=== PATIENT | female | born 1980 | race Caucasian/White ===

== ENCOUNTER 2023-01-14 13:56 | Observation (INO) ==
[2023-01-14] MEDS ORDERED: KETOROLAC TROMETHAMINE 15 MG/ML VIAL IV ONE (14:12)
[2023-01-14] MEDS ORDERED: ONDANSETRON INJ 2 MG/ML 2 ML VIAL IV STA (14:12)
[2023-01-14] MEDS ORDERED: SODIUM CHLORIDE 0.9% 1000ML 1,000 ML IV ONE (14:12)
--- NOTE | 2023-01-14 14:21 | Emergency Department Note ---
History of Present Illness General Chief complaint: Abdominal Pain Stated complaint: ABDOMINAL PAIN,VOMITING Time Seen by Provider: 01/14/23 14:02 Source: patient and RN notes reviewed Mode of arrival: ambulatory Limitations: no limitations History of Present Illness Maximum Pain Intensity: 8 This patient is a 42-year-old female who comes in with abdominal pain. She said yesterday she felt like she had indigestion and then started having vomiting and diarrhea and now has right-sided abdominal pain in the right mid to lower abdomen. She has no abdominal surgery. She does not think she is she is a tubal ligation and her last menstrual period was about a month ago. No vaginal ear discharge. no dysuria or hematuria. no trauma or injury or overuse. No sick contacts no exposure to COVID.no unusual food or recent trave.l no shortness of breath or chest pain. Home Medications Medication Instructions Recorded Confirmed Type lactobacillus combination no.4 3 3,000 mmu cells PO DAILY 07/29/20 03/11/22 History billion cell capsule (Probiotic) aluminum chloride 20 % topical 1 applic topical ONCE PRN 02/14/21 03/11/22 Rx solution (Drysol) excessive sweating #60 mL lorazepam 0.5 mg tablet (Ativan) 0.5 mg PO DAILY PRN anxiety #10 02/14/21 03/11/22 Rx tabs albuterol sulfate 90 mcg/actuation 1 inh inhalation QID PRN shortness 03/11/22 03/11/22 Rx aerosol inhaler of breath or wheezing #8.5 grams bupropion HCl 200 mg tablet,12 hr 200 mg PO BID #180 ea 06/16/22 Rx sustained-release escitalopram oxalate 10 mg tablet 10 mg PO DAILY #90 tabs 06/16/22 Rx Allergies Allergy/AdvReac Type Severity Reaction Status Date / Time venlafaxine [From Effexor] Allergy Unknown Verified 03/11/22 08:28 Past Med/Surg History Medical History Cat bite Cat bite Cat bite Lipid screening Need for prophylactic vaccination against rabies Screening for diabetes mellitus Screening for thyroid disorder Screening, anemia, deficiency, iron Surgical History H/O tubal ligation Family History Other Adopted Family history unknown Social History Smoking Status: Former smoker Hx Alcohol Use: No Hx Substance Use: No Preferred Language: Bulgarian Visual Impairment: No Limitations Hearing Ability: Normal marital status: Single current occupational status: employed Feels Safe at Home: Yes Dental Care, Regularly: No Physical Activity Frequency: 3-4 Times per Week Seatbelt Use: always Review of Systems A total of 10 systems reviewed and were otherwise negative Physical Exam Vital Signs Vital Signs - 24 hr 01/14/23 13:58 01/14/23 14:26 01/14/23 14:26 Temperature 36.6 C Temperature Source Temporal Artery Scan Pulse Rate 96 H Pulse Rate [Apical] 80 Pulse Rhythm [Apical] Pulse Strength [Apical] Respiratory Rate 18 18 Respiratory Effort / Characteristics Non-Labored Spontaneous Respiratory Depth Normal Normal Respiratory Pattern Blood Pressure 101/70 Blood Pressure [Left Arm] Blood Pressure [Right Arm] 117/71 Blood Pressure Mean 80 Blood Pressure Mean [Left Arm] Blood Pressure Mean [Right Arm] 86 Blood Pressure Position Sitting Blood Pressure Position [Left Arm] Blood Pressure Position [Right Arm] Pulse Oximetry 99 98 98 Oxygen Delivery Method Room Air Room Air Room Air Sepsis Recent Fever Within 48 Hours No Sepsis New/Unexplained Change in Mental Status No Sepsis Action Taken by Nursing No Action Required 01/14/23 14:29 01/14/23 15:41 01/14/23 16:44 Temperature 37.4 C Temperature Source Oral Pulse Rate 80 Pulse Rate [Apical] 81 76 Pulse Rhythm [Apical] Regular Pulse Strength [Apical] Respiratory Rate 18 18 Respiratory Effort / Characteristics Non-Labored Spontaneous Non-Labored Spontaneous Respiratory Depth Normal Normal Respiratory Pattern Blood Pressure Blood Pressure [Left Arm] Blood Pressure [Right Arm] 110/62 106/64 Blood Pressure Mean Blood Pressure Mean [Left Arm] Blood Pressure Mean [Right Arm] 78 78 Blood Pressure Position Blood Pressure Position [Left Arm] Blood Pressure Position [Right Arm] Lying Pulse Oximetry 100 99 Oxygen Delivery Method Room Air Room Air Sepsis Recent Fever Within 48 Hours Sepsis New/Unexplained Change in Mental Status Sepsis Action Taken by Nursing 01/14/23 18:00 Temperature 36.6 C Temperature Source Temporal Artery Scan Pulse Rate Pulse Rate [Apical] 81 Pulse Rhythm [Apical] Regular Pulse Strength [Apical] Normal Respiratory Rate 20 Respiratory Effort / Characteristics Non-Labored Spontaneous Respiratory Depth Normal Respiratory Pattern Regular Blood Pressure Blood Pressure [Left Arm] 102/60 Blood Pressure [Right Arm] Blood Pressure Mean Blood Pressure Mean [Left Arm] 74 Blood Pressure Mean [Right Arm] Blood Pressure Position Blood Pressure Position [Left Arm] Semi-fowlers Blood Pressure Position [Right Arm] Pulse Oximetry 99 Oxygen Delivery Method Room Air Sepsis Recent Fever Within 48 Hours Sepsis New/Unexplained Change in Mental Status Sepsis Action Taken by Nursing General: Well developed well nourished middle-age female who appears in no acute distress, breathing comfortably on room air. Normal speech HEENT: Normal cephalic atraumatic. Pupils are equal round and reactive to light. Extraocular movements are intact. Oropharynx is pink with moist mucous membranes. No swelling of the mouth lips or tongue. Neck: Supple with a midline trachea. No meningeal signs or stiffness, no JVD or bruits. No Stridor. Chest: Clear to auscultation bilaterally. No wheezes or rhonchi. No increased work of breathing. Heart: Regular rate and rhythm without murmurs or gallops. Abdomen: Significantly tender in the right mid abdomen, she does have some localized guarding. Extremities: No cyanosis clubbing or edema. No calf tenderness or assymetry Spine/Back. Non tender to palpation. No CVA tenderness Skin: Good turgor without rashes. Neurologic exam: Cranial nerves two through 12 are intact. Motor and sensation are intact and symmetrical throughout. Course Administered Medications Discontinued Medications Bupivacaine HCl/Epinephrine Bitart (Bupivacaine/Epinephrine 0.5% Mpf 1:200,000 30 Ml Vial) Confirm Administered Dose 30 ml .ROUTE .STK-MED ONE Stop: 01/14/23 16:30 Last Admin: 01/14/23 17:45 Dose: 30 ml Documented By: MIKE Sodium Chloride (Nss 1000ml) 1,000 mls @ 999 mls/hr IV .Q1H1M ONE Stop: 01/14/23 15:12 Last Infusion: 01/14/23 15:25 Dose: 0 mls/hr Documented By: Admin: 01/14/23 14:24 Dose: 999 mls/hr Documented By: KASSIE Piperacillin Sod/Tazobactam Sod (Zosyn) 4.5 gm in 120 mls @ 240 mls/hr IV NOW ONE Stop: 01/14/23 16:11 Last Infusion: 01/14/23 16:19 Dose: 0 mls/hr Documented By: Admin: 01/14/23 15:47 Dose: 240 mls/hr Documented By: KASSIE Ioversol (Optiray 350 100ml) 81 ml IV ONCE ONE Stop: 01/14/23 15:13 Last Admin: 01/14/23 15:15 Dose: 81 ml Documented By: RENE Ketorolac Tromethamine (Ketorolac Tromethamine 15 Mg/Ml Vial) 10 mg IV NOW ONE Stop: 01/14/23 14:13 Last Admin: 01/14/23 14:24 Dose: 10 mg Documented By: KASSIE Ondansetron HCl (Ondansetron Inj 2 Mg/Ml 2 Ml Vial) 4 mg IV NOW STA Stop: 01/14/23 14:13 Last Admin: 01/14/23 14:24 Dose: 4 mg Documented By: KASSIE Medical Decision Making Differential Diagnosis Appendicitis, , ectopic , gallbladder disease, pancreatitis, GI illness, viral illness, electrolyte or metabolic abnormality Medical Records Attestation: I reviewed the patient's medical records. Home Medications Current Medication List: was personally reviewed by me Laboratory Data Attestation: I reviewed the patient's lab results. 01/14/23 14:16 01/14/23 14:16 Lab Results 01/14/23 01/14/23 01/14/23 Range/Units 14:16 14:16 14:16 WBC 29.70 H (4.8-10.8) K/ul RBC 4.41 (4.20-5.40) M/uL Hgb 13.8 (12.0-16.0) g/dl Hct 39.5 (37.0-47.0) % MCV 89.6 (80.0-100.0) fL MCH 31.3 (25.0-34.0) pg MCHC 34.9 (32.0-36.0) g/dL RDW Std Deviation 42.2 (36.4-46.3) fL RDW Coeff of Howie 12.7 (11.5-14.5) % Plt Count 323 (130-400) K/uL MPV 8.9 L (9.4-12.4) fL Immature Gran % (Auto) 1.4 % Neut % (Auto) 87.7 % Lymph % (Auto) 5.7 % [place] % (Auto) 5.0 % Eos % (Auto) 0.0 % Baso % (Auto) 0.2 % Neut # (Auto) 26.04 H (1.40-6.50) K/uL Lymph # (Auto) 1.68 (1.2-3.4) K/uL [place] # (Auto) 1.49 H (0.11-0.59) K/uL Eos # (Auto) 0.00 (0-0.50) K/uL Baso # (Auto) 0.06 (0-0.2) K/uL Immature Gran # (Auto) 0.43 H (0.01-0.20) K/uL RBC Morphology Unremarkable Sodium 134 L (136-145) mmol/L Potassium 3.5 (3.5-5.1) mmol/L Chloride 99 (98-107) mmol/L Carbon Dioxide 26 (21-32) mmol/L Anion Gap 9 (3-11) BUN 14 (6-23) mg/dl Creatinine 0.72 (0.6-1.2) mg/dl Est Cr Clr Drug Dosing 96.1 ml/min Est GFR ( Amer) 118.9 ml/min Est GFR (Non-Af Amer) 102.6 ml/min BUN/Creatinine Ratio 19.4 (10-20) Glucose 123 H (70-99(Fasting)) mg/dl Calcium 9.4 (8.6-10.3) mg/dl Total Bilirubin 1.3 H (0.2-1.0) mg/dl AST 17 (13-39) U/L ALT 14 (7-52) U/L Alkaline Phosphatase 65 (34-104) U/L Total Protein 7.3 (6.0-8.3) gm/dl Albumin 4.4 (3.4-5.0) gm/dl Globulin 2.9 (2.5-4.0) gm/dl Albumin/Globulin Ratio 1.5 (0.9-2) Lipase 6 L (11-82) U/L HCG, Qual Negative (Negative) SARS-CoV-2, RNA, NAAT (NEGATIVE) 01/14/23 Range/Units 14:16 WBC (4.8-10.8) K/ul RBC (4.20-5.40) M/uL Hgb (12.0-16.0) g/dl Hct (37.0-47.0) % MCV (80.0-100.0) fL MCH (25.0-34.0) pg MCHC (32.0-36.0) g/dL RDW Std Deviation (36.4-46.3) fL RDW Coeff of Howie (11.5-14.5) % Plt Count (130-400) K/uL MPV (9.4-12.4) fL Immature Gran % (Auto) % Neut % (Auto) % Lymph % (Auto) % [place] % (Auto) % Eos % (Auto) % Baso % (Auto) % Neut # (Auto) (1.40-6.50) K/uL Lymph # (Auto) (1.2-3.4) K/uL [place] # (Auto) (0.11-0.59) K/uL Eos # (Auto) (0-0.50) K/uL Baso # (Auto) (0-0.2) K/uL Immature Gran # (Auto) (0.01-0.20) K/uL RBC Morphology Sodium (136-145) mmol/L Potassium (3.5-5.1) mmol/L Chloride (98-107) mmol/L Carbon Dioxide (21-32) mmol/L Anion Gap (3-11) BUN (6-23) mg/dl Creatinine (0.6-1.2) mg/dl Est Cr Clr Drug Dosing ml/min Est GFR ( Amer) ml/min Est GFR (Non-Af Amer) ml/min BUN/Creatinine Ratio (10-20) Glucose (70-99(Fasting)) mg/dl Calcium (8.6-10.3) mg/dl Total Bilirubin (0.2-1.0) mg/dl AST (13-39) U/L ALT (7-52) U/L Alkaline Phosphatase (34-104) U/L Total Protein (6.0-8.3) gm/dl Albumin (3.4-5.0) gm/dl Globulin (2.5-4.0) gm/dl Albumin/Globulin Ratio (0.9-2) Lipase (11-82) U/L HCG, Qual (Negative) SARS-CoV-2, RNA, NAAT NEGATIVE (NEGATIVE) Imaging Data Attestation: I personally reviewed and interpreted this imaging study as follows: My Impression: CT of the abdomen pelvis. Upon my evaluation/interpretation there is in flammation with a large appendix seen in the right lower quadrant. There is also appendicolith Radiologist's Impression: Abdomen/Pelvis CT 01/14/23 14:16 CT abd pelvis IV con only CLINICAL HISTORY: rt sided abd pain, eval for appy TECHNIQUE: Helical axial images of the abdomen and pelvis were obtained and displayed. Automated dose lowering techniques and/or adjustment according to patient size were utilized for this exam. This exam was performed with intravenous contrast. CT DOSE: 355.71 mGy.cm COMPARISON: Comparison is made to ultrasound abdomen 04/08/2009 FINDINGS: Lower chest: No acute abnormality. Liver: Unremarkable. No focal lesions are seen. Gallbladder and biliary tree: No calcified gallstones. Normal caliber wall. No intra- or extrahepatic biliary ductal dilation. Pancreas: Unremarkable, no focal lesions. Spleen: Unremarkable. Adrenals: Unremarkable. Kidneys and ureters: Unremarkable. Bladder: Unremarkable. Reproductive organs: Unremarkable. Bowel: An appendicolith is seen in the appendix is noted to be markedly dilated up to 14 mm. There is surrounding free fluid and fat stranding however no discrete fluid collection is seen. Lymph nodes Retroperitoneal: Unremarkable. Pelvic: Unremarkable. Mesenteric: Unremarkable. Peritoneum: Fat stranding is seen in the right lower quadrant. No pneumoperitoneum is seen. Vessels: Unremarkable. Abdominal wall: Unremarkable. Bones: Degenerative changes in the visualized spine. IMPRESSION: Acute appendicitis without perforation or abscess formation. ACT 112: Negative or not required by law. Electronically signed by: Ed Aguirre M.D. 01/14/2023 3:31 PM [facility] Narrative This patient comes in as described above. She was placed in room B9. She is here for abdominal pain. She is fairly tender in the right side of the abdomen. IV acess was established. I ordered a test as well as multiple blood test and she was kept n.p.o. she was hydrated with normal saline given Toradol 10 mg IV and Zofran 4 mg IV she was reassessed frequently. I did also order a CT pending her test and renal function. She is not . COVID testing was also negative. White count was significantly elevated 29,000. I did get the CAT scan and looked at it myself as well and she does have acute appendicitis. No definite abscess or perforation. Her abdomen is very tender. I did consult surgery. I gave her Zosyn 4.5 g IV for antibiotic coverage they promptly saw her in the ER and going to take her to the operating room for an appendectomy. Impression & Plan Acute appendicitis with localized peritonitis, Abdominal pain, Not currently , Lab test negative for COVID-19 virus Discharge Plan Visit Data Chief Complaint: Abdominal Pain Stated Complaint: ABDOMINAL PAIN,VOMITING ED Provider: Souleymane Nicholson Discharge Problem: Acute appendicitis with localized peritonitis, Abdominal pain, Not currently , Lab test negative for COVID-19 virus Discharge Instructions Interventions: ED Discharge Assessment Last Done: 01/14/23 16:23
[2023-01-14 14:35] LABS: Hematocrit (blood only) 39.5 % (37.0-47.0); Hemoglobin 13.8 g/dl (12.0-16.0); Mean Corpuscular Hemoglobin 31.3 pg (25.0-34.0); Mean Corpuscular Hgb Conc 34.9 g/dL (32.0-36.0); Mean Corpuscular Volume 89.6 fL (80.0-100.0); Mean Platelet Volume 8.9 fL (9.4-12.4); Platelet Count 323 K/uL (130-400); RDW Coefficient of Variation 12.7 % (11.5-14.5); RDW Standard Deviation 42.2 fL (36.4-46.3); Red Blood Count 4.41 M/uL (4.20-5.40)
[2023-01-14 14:55] LABS: Albumin Globulin Ratio 1.5 (0.9-2); Albumin Level 4.4 gm/dl (3.4-5.0); BUN Creatinine Ratio 19.4 (10-20); Bilirubin,Total 1.3 mg/dl (0.2-1.0); Calcium 9.4 mg/dl (8.6-10.3); Creatinine Clr Calc Pharmacy 96.1 ml/min; Est GFR (African American) 118.9 ml/min; Est GFR (Non-African American) 102.6 ml/min; Globulin 2.9 gm/dl (2.5-4.0); Potassium 3.5 mmol/L (3.5-5.1); Total Protein 7.3 gm/dl (6.0-8.3)
[2023-01-14] MEDS ORDERED: OPTIRAY 350 100ml IV ONE (15:12)
[2023-01-14 15:18] LABS: Pregnancy Test, Serum Negative (Negative)
[2023-01-14 15:23] LABS: Basophils # (auto) 0.06 K/uL (0-0.2); Basophils % (auto) 0.2 %; Immature Granulocytes # (auto) 0.43 K/uL (0.01-0.20); Immature Granulocytes % (auto) 1.4 %; Lymphocytes # (auto) 1.68 K/uL (1.2-3.4); Lymphocytes % (auto) 5.7 %; Monocytes # (auto) 1.49 K/uL (0.11-0.59); Neutrophils # (auto) 26.04 K/uL (1.40-6.50); Neutrophils % (auto) 87.7 %; RBC Morphology Unremarkable
--- NOTE | 2023-01-14 15:34 | CT Scan Report ---
CT abd pelvis IV con only CLINICAL HISTORY: rt sided abd pain, eval for appy TECHNIQUE: Helical axial images of the abdomen and pelvis were obtained and displayed. Automated dose lowering techniques and/or adjustment according to patient size were utilized for this exam. This e xam was performed with intravenous contrast. CT DOSE: 355.71 mGy.cm COMPARISON: Comparison is made to ultrasound abdomen 04/08/2009 FINDINGS: Lower chest: No acute abnormality. Liver: Unremarkable. No focal lesions are seen. Gallbladder and biliary tree: No calcified gallstones. Normal caliber wall. No intra- or extrahepatic biliary ductal dilation. Pancreas: Unremarkable, no focal lesions. Spleen: Unremarkable. Adrenals: Unremarkable. Kidneys and ureters: Unremarkable. Bladder: Unremarkable. Reproductive organs: Unremarkable. Bowel: An appendicolith is seen in the appendix is noted to be markedly dilated up to 14 mm. There is surrounding free fluid and fat stranding however no discrete fluid collection is seen. Lymph nodes Retroperitoneal: Unremarkable. Pelvic: Unremarkable. Mesenteric: Unremarkable. Peritoneum: Fat stranding is seen in the right lower quadrant. No pneumoperitoneum is seen. Vessels: Unremarkable. Abdominal wall: Unremarkable. Bones: Degenerative changes in the visualized spine. IMPRESSION: Acute appendicitis without perforation or abscess formation. ACT 112: Negative or not required by law. Electronically signed by: Ed Aguirre M.D. 01/14/2023 3:31 PM
[2023-01-14] MEDS ORDERED: PIPERACILLIN/TAZOBACTAM 4.5 GM/120 ML BAG IV ONE (15:42)
--- NOTE | 2023-01-14 16:19 | History & Physical Report ---
Date of Service January 14, 2023 Assessment & Plan (1) Acute appendicitis with localized peritonitis: Plan: 42-year-old woman with acute appendicitis with localized peritonitis. White blood cell count 29. CT scan demonstrates severe appendicitis without definitive evidence of perforation. I discussed with her the risks and benefits of laparoscopic, possible open appendectomy. All questions were answered, and she is agreeable to proceed. Consent has been obtained. We will take her to the operating room at the earliest possibility. History of Present Illness Primary Care Provider: Devika Stafford MD 42-year-old woman presents with severe right lower quadrant abdominal pain starting yesterday. This was accompanied by nausea and vomiting. She last had toast this morning. She has had chills throughout the day. She denies definitive fever. She denies chest pain or shortness of breath. White blood cell count is 29. CT scan demonstrates severe acute appendicitis with appendicolith. Allergies Allergy/AdvReac Type Severity Reaction Status Date / Time venlafaxine [From Effexor] Allergy Unknown Verified 03/11/22 08:28 Home Medications Medication Instructions Recorded Confirmed Type lactobacillus combination no.4 3 3,000 mmu cells PO DAILY 07/29/20 03/11/22 History billion cell capsule (Probiotic) aluminum chloride 20 % topical 1 applic topical ONCE PRN 02/14/21 03/11/22 Rx solution (Drysol) excessive sweating #60 mL lorazepam 0.5 mg tablet (Ativan) 0.5 mg PO DAILY PRN anxiety #10 02/14/21 03/11/22 Rx tabs albuterol sulfate 90 mcg/actuation 1 inh inhalation QID PRN shortness 03/11/22 03/11/22 Rx aerosol inhaler of breath or wheezing #8.5 grams bupropion HCl 200 mg tablet,12 hr 200 mg PO BID #180 ea 06/16/22 Rx sustained-release escitalopram oxalate 10 mg tablet 10 mg PO DAILY #90 tabs 06/16/22 Rx Past Med/Surg History Medical History Cat bite Cat bite Cat bite Lipid screening Need for prophylactic vaccination against rabies Screening for diabetes mellitus Screening for thyroid disorder Screening, anemia, deficiency, iron Surgical History H/O tubal ligation Family History Other Adopted Family history unknown Social History Smoking Status: Former smoker Hx Alcohol Use: No Hx Substance Use: No Preferred Language: [place] Visual Impairment: No Limitations Hearing Ability: Normal marital status: Single current occupational status: employed Feels Safe at Home: Yes Dental Care, Regularly: No Physical Activity Frequency: 3-4 Times per Week Seatbelt Use: always Review of Systems Review of Systems: All systems reviewed & are unremarkable except as noted in HPI & below Physical Exam Constitutional: WD/WN, vitals as above Eyes: PERRL, conjunctivae normal, anicteric sclerae Neck: trachea midline, no thyromegaly Respiratory: normal respiratory effort, lungs clear to auscultation Cardiovascular: RRR, no murmur, no edema Gastrointestinal (Abdomen): Inspection/Auscultation: abdomen normal to inspection; abdomen not distended Percussion/Palpation: + abdomen tender (Diffusely, severe right lower quadrant) and abdomen soft; no guarding and abdomen not rigid Skin: no rashes, warm and dry Psychiatric: A+Ox3, euthymic affect Results & Data Results & Data Vital Signs (Past 12 Hours) Vital Signs Temp Pulse Pulse Resp BP BP Pulse Ox 01/14/23 15:41 81 18 110/62 100 01/14/23 14:29 80 01/14/23 14:26 98 01/14/23 14:26 80 18 117/71 98 01/14/23 13:58 36.6 C 96 H 18 101/70 99 O2 Del Method 01/14/23 15:41 Room Air 01/14/23 14:29 01/14/23 14:26 Room Air 01/14/23 14:26 Room Air 01/14/23 13:58 Room Air Laboratory Results 01/14/23 01/14/23 01/14/23 Range/Units 14:16 14:16 14:16 WBC (4.8-10.8) K/ul RBC (4.20-5.40) M/uL Hgb (12.0-16.0) g/dl Hct (37.0-47.0) % MCV (80.0-100.0) fL MCH (25.0-34.0) pg MCHC (32.0-36.0) g/dL RDW Std Deviation (36.4-46.3) fL RDW Coeff of Howie (11.5-14.5) % Plt Count (130-400) K/uL MPV (9.4-12.4) fL Immature Gran % (Auto) % Neut % (Auto) % Lymph % (Auto) % [place] % (Auto) % Eos % (Auto) % Baso % (Auto) % Neut # (Auto) (1.40-6.50) K/uL Lymph # (Auto) (1.2-3.4) K/uL [place] # (Auto) (0.11-0.59) K/uL Eos # (Auto) (0-0.50) K/uL Baso # (Auto) (0-0.2) K/uL Immature Gran # (Auto) (0.01-0.20) K/uL RBC Morphology Sodium 134 L (136-145) mmol/L Potassium 3.5 (3.5-5.1) mmol/L Chloride 99 (98-107) mmol/L Carbon Dioxide 26 (21-32) mmol/L Anion Gap 9 (3-11) BUN 14 (6-23) mg/dl Creatinine 0.72 (0.6-1.2) mg/dl Est Cr Clr Drug Dosing 96.1 ml/min Est GFR ( Amer) 118.9 ml/min Est GFR (Non-Af Amer) 102.6 ml/min BUN/Creatinine Ratio 19.4 (10-20) Glucose 123 H (70-99(Fasting)) mg/dl Calcium 9.4 (8.6-10.3) mg/dl Total Bilirubin 1.3 H (0.2-1.0) mg/dl AST 17 (13-39) U/L ALT 14 (7-52) U/L Alkaline Phosphatase 65 (34-104) U/L Total Protein 7.3 (6.0-8.3) gm/dl Albumin 4.4 (3.4-5.0) gm/dl Globulin 2.9 (2.5-4.0) gm/dl Albumin/Globulin Ratio 1.5 (0.9-2) Lipase 6 L (11-82) U/L HCG, Qual Negative (Negative) SARS-CoV-2, RNA, NAAT NEGATIVE (NEGATIVE) 01/14/23 Range/Units 14:16 WBC 29.70 H (4.8-10.8) K/ul RBC 4.41 (4.20-5.40) M/uL Hgb 13.8 (12.0-16.0) g/dl Hct 39.5 (37.0-47.0) % MCV 89.6 (80.0-100.0) fL MCH 31.3 (25.0-34.0) pg MCHC 34.9 (32.0-36.0) g/dL RDW Std Deviation 42.2 (36.4-46.3) fL RDW Coeff of Howie 12.7 (11.5-14.5) % Plt Count 323 (130-400) K/uL MPV 8.9 L (9.4-12.4) fL Immature Gran % (Auto) 1.4 % Neut % (Auto) 87.7 % Lymph % (Auto) 5.7 % [place] % (Auto) 5.0 % Eos % (Auto) 0.0 % Baso % (Auto) 0.2 % Neut # (Auto) 26.04 H (1.40-6.50) K/uL Lymph # (Auto) 1.68 (1.2-3.4) K/uL [place] # (Auto) 1.49 H (0.11-0.59) K/uL Eos # (Auto) 0.00 (0-0.50) K/uL Baso # (Auto) 0.06 (0-0.2) K/uL Immature Gran # (Auto) 0.43 H (0.01-0.20) K/uL RBC Morphology Unremarkable Sodium (136-145) mmol/L Potassium (3.5-5.1) mmol/L Chloride (98-107) mmol/L Carbon Dioxide (21-32) mmol/L Anion Gap (3-11) BUN (6-23) mg/dl Creatinine (0.6-1.2) mg/dl Est Cr Clr Drug Dosing ml/min Est GFR ( Amer) ml/min Est GFR (Non-Af Amer) ml/min BUN/Creatinine Ratio (10-20) Glucose (70-99(Fasting)) mg/dl Calcium (8.6-10.3) mg/dl Total Bilirubin (0.2-1.0) mg/dl AST (13-39) U/L ALT (7-52) U/L Alkaline Phosphatase (34-104) U/L Total Protein (6.0-8.3) gm/dl Albumin (3.4-5.0) gm/dl Globulin (2.5-4.0) gm/dl Albumin/Globulin Ratio (0.9-2) Lipase (11-82) U/L HCG, Qual (Negative) SARS-CoV-2, RNA, NAAT (NEGATIVE) Diagnostic Findings CT abd pelvis IV con only CLINICAL HISTORY: rt sided abd pain, eval for appy TECHNIQUE: Helical axial images of the abdomen and pelvis were obtained and displayed. Automated dose lowering techniques and/or adjustment according to patient size were utilized for this exam. This exam was performed with intravenous contrast. CT DOSE: 355.71 mGy.cm COMPARISON: Comparison is made to ultrasound abdomen 04/08/2009 FINDINGS: Lower chest: No acute abnormality. Liver: Unremarkable. No focal lesions are seen. Gallbladder and biliary tree: No calcified gallstones. Normal caliber wall. No intra- or extrahepatic biliary ductal dilation. Pancreas: Unremarkable, no focal lesions. Spleen: Unremarkable. Adrenals: Unremarkable. Kidneys and ureters: Unremarkable. Bladder: Unremarkable. Reproductive organs: Unremarkable. Bowel: An appendicolith is seen in the appendix is noted to be markedly dilated up to 14 mm. There is surrounding free fluid and fat stranding however no discrete fluid collection is seen. Lymph nodes Retroperitoneal: Unremarkable. Pelvic: Unremarkable. Mesenteric: Unremarkable. Peritoneum: Fat stranding is seen in the right lower quadrant. No pneumo peritoneum is seen. Vessels: Unremarkable. Abdominal wall: Unremarkable. Bones: Degenerative changes in the visualized spine. IMPRESSION: Acute appendicitis without perforation or abscess formation.
[2023-01-14] MEDS ORDERED: fentaNYL citrate PF 100 MCG/2 ML VIAL ONE (16:22)
[2023-01-14] MEDS ORDERED: PROPOFOL IV EMULSION 10 MG/ML 20 ML VIAL IV ONE (16:22)
[2023-01-14] MEDS ORDERED: DEXAMETHASONE SOD INJ 4 MG/ML VIAL ONE (16:22)
[2023-01-14] MEDS ORDERED: ONDANSETRON INJ 2 MG/ML 2 ML VIAL ONE (16:22)
[2023-01-14] MEDS ORDERED: ROCURONIUM BROMIDE 10 MG/ML 5 ML VIAL IV ONE (16:22)
[2023-01-14] MEDS ORDERED: LIDOCAINE 2% MPF LOCAL 5 ML VIAL ONE (16:22)
[2023-01-14] MEDS ORDERED: MIDAZOLAM HCL 1 MG/ML 2ML VIAL ONE (16:23)
[2023-01-14] MEDS ORDERED: BUPIVACAINE/EPINEPHRINE 0.5% MPF 1:200,000 30 ML VIAL ONE (16:29)
--- NOTE | 2023-01-14 16:44 | Anesthesiology Consultation ---
Date of Service January 14, 2023 Assessment & Plan Chart Review Chart Review: Acceptable Risk for Surgery and Patient NOT seen in Pre Admission Testing Consults Requested none ASA ASA2E Proposed Anesthesia Anesthesia Type: General Risk / Benefits Reviewed With: PT / POA / Parent / Guardian, Accepts Plan and Informed Consent Obtained History Surgery Operation Date: 01/14/23 15:15 Proposed Procedures p Laparoscopic Appendectomy - Nicko Zafar MD Height/Weight Height: 5 ft 4 in Weight: 69 kg Allergies Allergy/AdvReac Type Severity Reaction Status Date / Time venlafaxine [From Effexor] Allergy Unknown Verified 03/11/22 08:28 Medications Home Medications Medication Instructions Recorded Confirmed Last Taken lactobacillus combination no.4 3 3,000 mmu cells PO DAILY 07/29/20 03/11/22 Unknown billion cell capsule (Probiotic) aluminum chloride 20 % topical 1 applic topical ONCE PRN 02/14/21 03/11/22 Unknown solution (Drysol) excessive sweating #60 mL lorazepam 0.5 mg tablet (Ativan) 0.5 mg PO DAILY PRN anxiety #10 02/14/21 03/11/22 Unknown tabs albuterol sulfate 90 mcg/actuation 1 inh inhalation QID PRN shortness 03/11/22 03/11/22 Unknown aerosol inhaler of breath or wheezing #8.5 grams bupropion HCl 200 mg tablet,12 hr 200 mg PO BID #180 ea 06/16/22 Unknown sustained-release escitalopram oxalate 10 mg tablet 10 mg PO DAILY #90 tabs 06/16/22 Unknown NPO Date Last Intake of Fluids: 01/14/23 Time Last Intake of Fluids: 13:00 Last Intake of Fluids Comment: sips of water Date Last Intake of Solids: 01/14/23 Time Last Intake of Solids: 08:00 Last Intake of Solids Comment: toast Past Medical History Medical History Cat bite Cat bite Cat bite Lipid screening Need for prophylactic vaccination against rabies Screening for diabetes mellitus Screening for thyroid disorder Screening, anemia, deficiency, iron Exercise / Class Metabolic Activity II 4-5 Yardwork/Stairs/Walk up hill Past Family History Family History Other Adopted Family history unknown Past Surgical History Surgical History H/O tubal ligation Past Anesthesia History No Hx of Anesthesia Complications and No Family Hx of Anesthesia Complications History of PONV No Hx of PONV and No Hx of Motion Sickness Social History Smoking Status: Former smoker Hx Alcohol Use: No Hx Substance Use: No Physical Exam Vital Signs Last Vital Signs Temp 36.6 C 01/14/23 13:58 Pulse 81 01/14/23 15:41 Resp 18 01/14/23 15:41 BP 110/62 01/14/23 15:41 Pulse Ox 100 01/14/23 15:41 O2 Del Method Room Air 01/14/23 15:41 ENMT Mouth: no dentition abnormality Thyromental Distance: > or= 3.5 Finger Breadths Mallampati Class: II Neck normal visual inspection Respiratory normal respiratory effort Auscultation: lungs clear to auscultation bilaterally Cardiovascular Rate/Rhythm: regular rate and regular rhythm Psychiatric Orientation: alert Testing Laboratory Results 01/14/23 14:16 01/14/23 14:16
[2023-01-14] MEDS ORDERED: ATROPINE SULFATE 0.1 MG/ML 10ML SYR IV PRN (16:45)
[2023-01-14] MEDS ORDERED: ONDANSETRON INJ 2 MG/ML 2 ML VIAL IV PRN ×2 (16:45→19:28)
[2023-01-14] MEDS ORDERED: ePHEDrine sulfate 50 MG/ML AMP IV PRN (16:45)
[2023-01-14] MEDS ORDERED: fentaNYL citrate PF 100 MCG/2 ML VIAL IV PRN (16:45)
[2023-01-14] MEDS ORDERED: KETOROLAC 30 MG/ML VIAL ONE (17:24)
[2023-01-14] MEDS ORDERED: GLYCOPYRROLATE 0.2 MG/ML VIAL ONE (17:29)
[2023-01-14] MEDS ORDERED: NEOSTIGMINE METHYLSULFATE 1 MG/ML 10ML VIAL ONE (17:29)
--- NOTE | 2023-01-14 18:01 | Operative Report ---
Post Operative Report Pre & Post Diagnosis Operation Date: 01/14/23 15:15 Pre-Op Diagnosis: Acute appendicitis with localized peritonitis Post-Op Diagnosis: Acute appendicitis with localized peritonitis I identified the patient and participated in the time-out.: Yes Procedure Operation Date: 01/14/23 15:15 Actual Procedures p Laparoscopic Appendectomy(Not Applicable) - Nicko Zafar MD Surgeon Nicko Zafar MD Core Cleaner None Estimated Blood Loss 5 Findings Consistent with Post-Op Diagnosis Severe acute appendicitis, turbid/purulent fluid within the abdomen; no perforation of the appendix Specimens Appendix Drains None Anesthesia Type General Complications No immediate complications Description of Procedure The patient was taken to the operating room, and placed supine on the operating table. A timeout was performed, perioperative antibiotics were administered, SCD boots were placed. After adequate anesthesia and analgesia was obtained, the abdomen was prepped and draped in the normal sterile fashion. A 1 cm incision was made in the supraumbilical region and carried down to the level of the fascia. A trach hook was used to grasp the fascia and elevated and a varies needle was used to enter the abdominal cavity. The abdomen was insufflated to a pressure of 15 mmHg, and a 5 mm trocar was placed in this location. A 5 mm 30 degree laparoscope was placed into the abdominal cavity, and the abdomen was surveyed. The cecum was adhesed to the anterior abdominal wall in the right lower quadrant. The patient was placed in Trendelenburg and slightly to the left. One 5 mm trocar was placed in the right upper quadrant, and one 12 mm trocar was placed in the left lower quadrant under direct visualization. The right colon was identified and bluntly peeled off the anterior abdominal wall, exposing the appendix in the retrocecal position. The appendix was carefully dissected bluntly from the surrounding inflammation, and was then elevated anteriorly and medially. A window was created at the base of the appendix with a [place] dissector. The Endo ANNALISA stapler was used to transect the appendix at its base through noninflamed tissue, and subsequently the mesoappendix. The appendix was placed in an Endo Catch bag, and removed via the left lower quadrant port site. Attention was turned to hemostasis, which was excellent. The abdomen was copiously irrigated and suctioned free, and again hemostasis was found to be excellent. All trochars removed under direct visualization. The abdomen was desufflated. The fascia in the 12 mm port site was closed with a 0 Vicryl suture. The skin was closed with a running 4-0 Monocryl subcuticular stitch. Dermabond was applied. The patient tolerated the procedure without complication, and was transferred in stable condition to the PACU. All instrument, needle, and sponge counts were correct at the end of the case. I attest to the content of the Intraoperative Record and any orders documented therein. Any exceptions are noted below.
--- NOTE | 2023-01-14 18:22 | Anesthesiology Progress Note ---
Date of Service January 14, 2023 Anesthesia Post Procedure Vital Signs Vital Signs: Temp Pulse Pulse Resp BP BP BP 01/14/23 18:20 36.7 C 78 15 105/58 L 01/14/23 18:10 80 16 104/59 L 01/14/23 18:00 36.6 C 81 20 102/60 01/14/23 16:44 37.4 C 76 18 106/64 01/14/23 15:41 81 18 110/62 01/14/23 14:29 80 01/14/23 14:26 01/14/23 14:26 80 18 117/71 01/14/23 13:58 36.6 C 96 H 18 101/70 Pulse Ox O2 Del Method 01/14/23 18:20 99 Room Air 01/14/23 18:10 97 Room Air 01/14/23 18:00 99 Room Air 01/14/23 16:44 99 Room Air 01/14/23 15:41 100 Room Air 01/14/23 14:29 01/14/23 14:26 98 Room Air 01/14/23 14:26 98 Room Air 01/14/23 13:58 99 Room Air Pain Intensity Right Lower Abdomen: Pain Intensity: 4 Transfer of Care Handoff Completed per policy Notes Mental Status: alert / awake / arousable Patient Amnestic to Procedure: Yes Nausea / Vomiting: adequately controlled Pain: adequately controlled Airway Patency, RR, SpO2: stable & adequate BP & HR: stable & adequate Hydration State: stable & adequate Anesthetic Complications: no major complications apparent
[2023-01-14] MEDS ORDERED: ALBUTEROL HFA 8 GM INHALER INH PRN (19:28)
[2023-01-14] MEDS ORDERED: PROMETHAZINE HCL 12.5 MG in SODIUM CHLORIDE 0.9% 50 ML IV PRN (19:28)
[2023-01-14] MEDS ORDERED: SODIUM CHLORIDE 0.9% 1000ML 1,000 ML IV SCH (19:28)
[2023-01-14] MEDS ORDERED: diphenhydrAMINE Capsule 25 MG CAP PO PRN (19:28)
[2023-01-14] MEDS ORDERED: MoRPHine SULFATE 2 MG/ML CARP IV PRN (19:28)
[2023-01-14] MEDS: KETOROLAC 30 MG/ML VIAL IV PRN (20:03)
[2023-01-14] MEDS: buPROPion SR 100 MG TABCR PO SCH (21:43)
[2023-01-14] MEDS: PIPERACILLIN/TAZOBACTAM 3.375 GM in DEXTROSE 5% 100 ML IV SCH (21:44)
[2023-01-15] MEDS: PIPERACILLIN/TAZOBACTAM 3.375 GM in DEXTROSE 5% 100 ML IV SCH ×2 (04:08→12:13)
[2023-01-15] MEDS: oxyCODONE/ACETAMINOPHEN 5mg/325mg TAB PO PRN ×3 (04:14→15:17)
--- NOTE | 2023-01-15 08:31 | Surgery Progress Note ---
Date of Service January 15, 2023 Assessment & Plan (1) Acute appendicitis with localized peritonitis: Plan: POD # 1 s/p lap appendectomy avss moderate postop pain no n,v Leukocytosis improving to 21K today (29k preop) Plan: Continue pain management as needed advance diet as tolerated continue IV Zosyn for now Encouraged OOB to chair and ambulation likely home this evening if pain controlled Dr. Zafar has seen and examined pt, agrees with above. Admission and Anticipated Discharge Date Admission Date: January 14, 2023 Subjective feeing sore, but better prior to surgery Cramping pain , took Percocet this am and Toradol last night no n,v urinating without difficulty has only been up to bathroom no chest pain or shortness of breath Physical Exam Constitutional: WD/WN, vitals as above cooperative and comfortable; no acute distress and not ill appearing Respiratory: normal respiratory effort; no respiratory distress Gastrointestinal (Abdomen): Inspection/Auscultation: abdomen normal to inspection, + abdomen distended (mild), normal bowel sounds and + abdominal surgical incision (clean/dry/intact with Dermabond) Percussion/Palpation: + abdomen tender (generalized more in RLQ), + guarding (voluntary RLQ) and abdomen soft; abdomen not rigid Skin: no rashes, warm and dry Psychiatric: A+Ox3, euthymic affect Results & Data Vital Signs (Past 12 Hours) Vital Signs Temp Pulse Resp BP Pulse Ox O2 Del Method 01/15/23 07:15 36.7 C 64 16 94/55 L 96 Room Air 01/15/23 04:00 36.8 C 69 16 98/61 L 94 Room Air 01/14/23 22:45 37.0 C 76 16 108/67 94 Room Air 01/14/23 21:45 37.1 C 74 16 101/64 96 Room Air Laboratory Results 01/15/23 01/14/23 01/14/23 Range/Units 08:02 14:16 14:16 WBC Pending (4.8-10.8) K/ul RBC Pending (4.20-5.40) M/uL Hgb Pending (12.0-16.0) g/dl Hct Pending (37.0-47.0) % MCV Pending (80.0-100.0) fL MCH Pending (25.0-34.0) pg MCHC Pending (32.0-36.0) g/dL RDW Std Deviation (36.4-46.3) fL RDW Coeff of Howie (11.5-14.5) % Plt Count Pending (130-400) K/uL MPV (9.4-12.4) fL Immature Gran % (Auto) % Neut % (Auto) % Lymph % (Auto) % Andrews % (Auto) % Eos % (Auto) % Baso % (Auto) % Neut # (Auto) (1.40-6.50) K/uL Lymph # (Auto) (1.2-3.4) K/uL Andrews # (Auto) (0.11-0.59) K/uL Eos # (Auto) (0-0.50) K/uL Baso # (Auto) (0-0.2) K/uL Immature Gran # (Auto) (0.01-0.20) K/uL RBC Morphology Sodium (136-145) mmol/L Potassium (3.5-5.1) mmol/L Chloride (98-107) mmol/L Carbon Dioxide (21-32) mmol/L Anion Gap (3-11) BUN (6-23) mg/dl Creatinine (0.6-1.2) mg/dl Est Cr Clr Drug Dosing ml/min Est GFR ( Amer) ml/min Est GFR (Non-Af Amer) ml/min BUN/Creatinine Ratio (10-20) Glucose (70-99(Fasting)) mg/dl Calcium (8.6-10.3) mg/dl Total Bilirubin (0.2-1.0) mg/dl AST (13-39) U/L ALT (7-52) U/L Alkaline Phosphatase (34-104) U/L Total Protein (6.0-8.3) gm/dl Albumin (3.4-5.0) gm/dl Globulin (2.5-4.0) gm/dl Albumin/Globulin Ratio (0.9-2) Lipase (11-82) U/L HCG, Qual Negative (Negative) SARS-CoV-2, RNA, NAAT NEGATIVE (NEGATIVE) 01/14/23 01/14/23 Range/Units 14:16 14:16 WBC 29.70 H (4.8-10.8) K/ul RBC 4.41 (4.20-5.40) M/uL Hgb 13.8 (12.0-16.0) g/dl Hct 39.5 (37.0-47.0) % MCV 89.6 (80.0-100.0) fL MCH 31.3 (25.0-34.0) pg MCHC 34.9 (32.0-36.0) g/dL RDW Std Deviation 42.2 (36.4-46.3) fL RDW Coeff of Howie 12.7 (11.5-14.5) % Plt Count 323 (130-400) K/uL MPV 8.9 L (9.4-12.4) fL Immature Gran % (Auto) 1.4 % Neut % (Auto) 87.7 % Lymph % (Auto) 5.7 % Andrews % (Auto) 5.0 % Eos % (Auto) 0.0 % Baso % (Auto) 0.2 % Neut # (Auto) 26.04 H (1.40-6.50) K/uL Lymph # (Auto) 1.68 (1.2-3.4) K/uL Andrews # (Auto) 1.49 H (0.11-0.59) K/uL Eos # (Auto) 0.00 (0-0.50) K/uL Baso # (Auto) 0.06 (0-0.2) K/uL Immature Gran # (Auto) 0.43 H (0.01-0.20) K/uL RBC Morphology Unremarkable Sodium 134 L (136-145) mmol/L Potassium 3.5 (3.5-5.1) mmol/L Chloride 99 (98-107) mmol/L Carbon Dioxide 26 (21-32) mmol/L Anion Gap 9 (3-11) BUN 14 (6-23) mg/dl Creatinine 0.72 (0.6-1.2) mg/dl Est Cr Clr Drug Dosing 96.1 ml/min Est GFR ( Amer) 118.9 ml/min Est GFR (Non-Af Amer) 102.6 ml/min BUN/Creatinine Ratio 19.4 (10-20) Glucose 123 H (70-99(Fasting)) mg/dl Calcium 9.4 (8.6-10.3) mg/dl Total Bilirubin 1.3 H (0.2-1.0) mg/dl AST 17 (13-39) U/L ALT 14 (7-52) U/L Alkaline Phosphatase 65 (34-104) U/L Total Protein 7.3 (6.0-8.3) gm/dl Albumin 4.4 (3.4-5.0) gm/dl Globulin 2.9 (2.5-4.0) gm/dl Albumin/Globulin Ratio 1.5 (0.9-2) Lipase 6 L (11-82) U/L HCG, Qual (Negative) SARS-CoV-2, RNA, NAAT (NEGATIVE) (1) Acute appendicitis with localized peritonitis Appendicitis abscess presence: without abscess Appendicitis gangrene presence: unspecified whether gangrene present Appendicitis perforation presence: without perforation Qualified Code(s): K35.30 - Acute appendicitis with localized peritonitis, without perforation or gangrene
[2023-01-15 08:38] LABS: Basophils # (auto) 0.04 K/uL (0-0.2); Basophils % (auto) 0.2 %; Hematocrit (blood only) 33.4 % (37.0-47.0); Hemoglobin 11.3 g/dl (12.0-16.0); Immature Granulocytes # (auto) 0.54 K/uL (0.01-0.20); Immature Granulocytes % (auto) 2.5 %; Lymphocytes # (auto) 1.28 K/uL (1.2-3.4); Lymphocytes % (auto) 5.8 %; Mean Corpuscular Hemoglobin 31.8 pg (25.0-34.0); Mean Corpuscular Hgb Conc 33.8 g/dL (32.0-36.0); Mean Corpuscular Volume 94.1 fL (80.0-100.0); Monocytes # (auto) 1.11 K/uL (0.11-0.59); Monocytes % (auto) 5.1 %; Neutrophils # (auto) 18.92 K/uL (1.40-6.50); Neutrophils % (auto) 86.4 %; Platelet Count 268 K/uL (130-400); RDW Coefficient of Variation 13.3 % (11.5-14.5); RDW Standard Deviation 46.1 fL (36.4-46.3); Red Blood Count 3.55 M/uL (4.20-5.40); White Blood Count 21.89 K/ul (4.8-10.8)
[2023-01-15] MEDS ORDERED: ENOXAPARIN INJ 40 MG/0.4 ML SYR SQ SCH (09:00)
[2023-01-15] MEDS ORDERED: ESCITALOPRAM OXALATE 10 MG TAB PO SCH (09:00)
[2023-01-15] MEDS: buPROPion SR 100 MG TABCR PO SCH (09:10)
[2023-01-15] MEDS: KETOROLAC 30 MG/ML VIAL IV PRN (09:41)
--- NOTE | 2023-01-18 08:33 | Discharge Summary ---
Date of Service January 18, 2023 Admission HPI Per Admitting Provider 42-year-old woman presents with severe right lower quadrant abdominal pain starting yesterday. This was accompanied by nausea and vomiting. She last had toast this morning. She has had chills throughout the day. She denies definitive fever. She denies chest pain or shortness of breath. White blood cell count is 29. CT scan demonstrates severe acute appendicitis with appendicolith. Principal Diagnosis Acute appendicitis Discharge Data Allergies Allergy/AdvReac Type Severity Reaction Status Date / Time venlafaxine [From Effexor] Allergy Unknown Verified 03/11/22 08:28 Procedures Performed Operation Date: 01/14/23 15:15 Actual Procedures p Laparoscopic Appendectomy(Not Applicable) - Nicko Zafar MD Ordered Studies 01/14/23 14:16 CT Abd and Pelvis [CT abd pelvis IV con only] Stat Hospital Course (1) Acute appendicitis with localized peritonitis: Patient was taken to operating room for laparoscopic appendectomy by Dr. Zafar. Patient found to have significant appendicitis with free fluid in abdomen however no evidence of perforation. Patient tolerated procedure without difficulty and transferred to medical/surgical floor for postoperative care. Diet was advanced as tolerated, activity as tolerated, IV Zosyn was continued given the inflammation, wbc rechecked, and pain management and antiemetics as needed. POD # 1 afebrile, vss, moderate postop pain controlled, tolerated diet. WBC down to 21k from 29k preoperatively. Patient was discharged home in the evening on POD # 1 in stable condition. Total Time Total Time Spent Total Time Spent (In Minutes): 45 minutes Total Time Includes: Examination of the Patient, Discharge Planning and Medication Reconciliation Discharge Plan Discharge Items Patient Disposition: Home - Self-Care Reason For Visit: APPENDICITIS Discharge Diagnosis: acute appendicitis Activity: Per Instructions section Non-emergency contact: Primary Care Provider and Surgeon Call non-emergency contact if: you have any medication questions, your pain is not controlled, your pain is worsening, you have a fever, your temperature is above 101, your wound has increased redness, your wound has increased drainage and your wound pain has increased Follow-up/Referrals: [facility],Medicine [Non-Staff] - Leila Taylor PA-C [Physician Capacity Planning Manager] - Diet: Regular Addtl Attending Provider Instructions: Post-Surgical ~Discharge Instructions Activity Recommendations: - lifting limitation: (20 pounds for 2-3 weeks), - exercise/sex/sports limit: (nonstrenuous for 2 weeks), - driving or machine use limit: (none for 1 week, until pain free, and no longer taking narcotic pain medication), - Shower/bathe limit: (may shower beginning tomorrow) Diet: - Resume previous diet SPECIAL CARE INSTRUCTIONS: - May shower in 24 hours. Let water run over area and pat dry. - Surgical glue will fall off on its own. - Call the surgeon's office with any questions or concerns - - (ex. temperature higher than 101 degrees F, excessive bleeding or pain). MEDICATIONS: - Resume previous medications unless instructed otherwise by your surgeon. - May alternate extra strength Tylenol and Ibuprofen as needed for mild to moderate pain - 650 mg Tylenol every 6 hours as needed - Ibuprofen 600 mg every 6 hours as needed (take with food) - Percocet 1 every 6 hours, as needed for moderate to severe pain - Recommend daily stool softener (Colace) while taking narcotic pain medication to prevent constipation or straining. Drink plenty of water daily. FOLLOW UP VISIT: - If not already scheduled, please call the office to schedule a one-two week follow-up appointment. Office number Pending Studies at Discharge: Yes (pathology) Stand-Alone Forms: [facility], Work/School Release, Smoking Cessation Medications and DC Order Prescriptions: New oxycodone-acetaminophen 5-325 mg tablet 1 tab PO Q6H PRN (Reason: pain) Qty: 10 0RF Continued bupropion HCl 200 mg tablet sustained-release 12 hr 200 mg PO BID Qty: 180 3RF escitalopram oxalate 10 mg tablet 10 mg PO DAILY Qty: 90 1RF Probiotic 3 billion cell capsule 3,000 mmu cells PO DAILY Rx Instructions: administer with a meal aluminum chloride [Drysol] 20 % solution 1 applic topical ONCE PRN (Reason: excessive sweating) Qty: 60 1RF lorazepam [Ativan] 0.5 mg tablet 0.5 mg PO DAILY PRN (Reason: anxiety) Qty: 10 0RF albuterol sulfate 90 mcg/actuation HFA aerosol inhaler 1 inh inhalation QID PRN (Reason: shortness of breath or wheezing) Qty: 8.5 4RF Discharge Orders: Discharge Order (Routine); Ordered 01/15/23 Ordered By: Leila Davis/Other Patient Handouts: Appendectomy, What Is Appendicitis? Admission Data Admit Date/Time: 01/14/23 18:04 Attending Provider: Nicko Zafar Admit Provider: Nicko Zafar Primary Care Provider: Devika Stafford V. Other Interventions: Discharge Summary Assessment (RN) Last Done: 01/15/23 14:44
== END 2023-01-15 16:19 | disposition home or self-care (01) ==
LOC: ED 13:56 → PACUINP 16:23 → 3W 16:23 → OR 16:23 → 3W 19:48